=== PATIENT | male | born 1965 | race Caucasian/White ===

== ENCOUNTER → 2024-04-14 07:34 | Outpatient (REF) | payer OTHER, SELFPAY | LOC: RCS 07:34 | PROVIDERS: ATTENDING PHYSICIAN Family Medicine | DX: R01.1 Cardiac murmur, unspecified (principal) | CPT/HCPCS: 93306 ==

== ENCOUNTER 2024-05-22 18:24 | Emergency (ER) | payer OTHER, SELFPAY ==
[2024-05-22 18:42] LABS: % Basophils 0.4 % (0-2); % Immature Granulocytes 0.3 % (0-0.5); % Monocytes 8.1 % (1.7-9.3); % Neutrophils 68.2 % (42.2-75.2); Absolute Eosinophils 0.3 10^3/uL (0-0.7); Absolute Monocytes 0.8 10^3/uL (0.1-0.6); Absolute Neutrophils 6.9 10^3/uL (1.4-6.5); Hematocrit 45.1 % (39.0-52.0); Hemoglobin 15.8 g/dL (13.0-18.0); Mean Corpuscular Volume 85.7 fL (80.0-94.0); Mean Platelet Volume 9.3 fL (7.4-10.4); Nucleated Red Blood Cells % 0 % (-); Platelet Count 305 10^3/uL (130-400); Red Blood Cell Count 5.26 10^6/uL (4.70-6.10); Red Cell Dist. Width 13.1 % (11.5-14.5); White Blood Cell Count 10.1 10^3/uL (4.8-10.8)
[2024-05-22 19:07] LABS: ALT (SGPT) 27 U/L (0-50); AST (SGOT) 27 U/L (17-59); Albumin 4.6 g/dl (3.5-5.0); Alkaline Phosphatase 68 U/L (38-126); Blood Urea Nitrogen 20 mg/dl (9-20); Calcium 9.6 mg/dl (8.4-10.2); Carbon Dioxide 25 mmol/L (22-30); Chloride 100 mmol/L (98-107); Glucose 103 mg/dl (70-99); Potassium 4.1 mmol/L (3.5-5.1); Sodium 139 mmol/L (135-145); Total Bilirubin 0.7 mg/dl (0.2-1.3); Total Protein 7.1 g/dl (6.3-8.2); eGFR > 60.00
[2024-05-22 19:17] LABS: Troponin I < 0.012 ng/ml
--- NOTE | 2024-05-22 21:20 | ED.GENMED ---
History of Present Illness
General
Chief Complaint: Heart Rate Problem
Source: patient
Exam Limitations: none
Time Seen by Provider: 05/22/24 20:15
Nursing documentation reviewed up to this point in time: agreed with
History of Present Illness
History of Present Illness:
58-year-old male presents with palpitations and 'fluttering' that he is felt for the past 2 months, it gets worse when he eats. He saw his PCP for this and had an echocardiogram on which showed 'something wrong with one of the valves in my
heart.' He denies chest pain. He states he gets a 'pressure' feeling in the right upper chest and neck area that he is having during the initial exam. He denies N/V/D/C.
Past History
Past History
ED Past Medical History: Other (Calcified functionally bicuspid aortic valve)
ED Past Surgical History: Orthopedic
Social History
Tobacco: Non-smoker
Alcohol: None
Personal: Single
Living: with family
Employment: Employed
Review of Systems
Review of Systems
Allergies reviewed?: Yes
All Other Systems: ROS reviewed and negative except as documented in HPI and ROS
Constitutional: Denies fever or fatigue
Respiratory: Denies trouble breathing
Cardiac: Reports chest pain (Intermittent right upper chest pressure with pressure in the right side of his neck, worse after eating) and palpitations ('Fluttering' intermittently for the past 2 months); Denies diaphoresis
ABD/GI: Denies abdominal pain, nausea, vomiting, diarrhea or anorexia
: Reports no symptoms
Musculoskeletal: Reports no symptoms
Skin: Reports no symptoms
Neurological: Reports no symptoms
Phy Exam
Physical Exam
Physical Exam:
GENERAL: No acute distress. A&Ox3.
CONSTITUTIONAL: Afebrile.
EYES: Clear, conjunctivae normal
Neck: Supple
ENMT: moist mucus membranes, Pharynx nl
RESPIRATORY: Regular respirations, nonlabored, lungs clear.
CARDIOVASCULAR: Regular rate and rhythm, no murmurs, no rubs. Radial and pedal pulses 2/4
GI: Soft, nontender, normal BS
MUSCULOSKELETAL: Moves with ease. Well perfused.
SKIN: Warm, dry, pink
PSYCH: Normal mood and affect. Well kept, interactive and appropriate
NEUROLOGIC: Awake, alert and oriented. No focal neurological deficits
Course
Orders/Labs/Results
Orders:
Orders
05/22/24 18:24
Electrocardiogram (*1) Urgent
Reason for Study: Chest Pain
05/22/24 18:25
EKG- Treatment ONCE
05/22/24 18:37
Complete Blood Count/With Diff Urgent
Comprehensive Metabolic Panel Urgent
Troponin I Urgent
05/22/24 21:16
Pantoprazole [Protonix] 40 mg PO NOW STA
Abnormal Lab Results
05/22/24
18:37
Absolute Neuts (auto) 6.9 H 10^3/uL
(1.4-6.5)
Absolute Monos (auto) 0.8 H 10^3/uL
(0.1-0.6)
Lymphocytes % 20.0 L %
(20.5-51.1)
Glucose 103 H mg/dl
(70-99)
05/22/24 18:37
05/22/24 18:37
Vital Signs
Initial and Last Documented VS:
Initial Vital Signs
Temp Pulse Resp Pulse Ox
97.8 F 87 18 98
05/22/24 18:27 05/22/24 18:27 05/22/24 18:27 05/22/24 18:27
Last Documented Vital Signs
Temp Pulse Resp BP Pulse Ox
97.8 F 72 15 146/99 99
05/22/24 18:27 05/22/24 21:15 05/22/24 21:15 05/22/24 21:29 05/22/24 20:45
MDM/Problems Addressed
Differential Diagnosis Includes:
ACS, GERD
MDM/Problems Addressed:
58-year-old male presents with palpitations and 'fluttering' that he is felt for the past 2 months, it gets worse when he eats. He saw his PCP for this and had an echocardiogram on 928 which showed 'something wrong with one of the valves in my
heart.' He denies chest pain. He states he gets a 'pressure' feeling in the right upper chest and neck area that he is having during the initial exam. He denies N/V/D/C.
Afebrile, NAD
7:30 p.m.
CBC normal
CMP normal
Troponin normal
Records reviewed: Echocardiogram on 04/14 revealed a calcified functionally bicuspid aortic valve. Aortic sclerosis without stenosis. Otherwise normal
His echo also showed a normal aorta. No aortic stenosis. No aortic aneurysm or dissection.
9:00 p.m.
I gave patient a copy of the report, discussed what a functionally bicuspid aortic valve is, showed him pictures to him and his sister who is at bedside.
He stated he had no clue what it was and was very appreciative of the information.
His peripheral pulses are all normal. No suspicion of aortic pathology.
As he was experiencing the 'pressure' in right upper chest and neck, monitor showed NSR, occasional PVC, HR 82, BP normal, reassured.
Referred to the Cardiac hotline.
Trial of Protonix in the meantime (he does say the feeling gets worse after eating). Rx sent to his pharmacy
*Critical Care Note
Total Time (30-74mins, 75-104mins- exclusive of procedures): Not Applicable
ED Attending Note
-
Portions of this chart may have been created with voice recognition software.� Occasional wrong word or��sound alike� substitutions may have occurred due to the inherent limitations of voice recognition software.
Discharge Plan
Departure
Patient Disposition: Home (Routine Discharge)
Date of Disposition: 05/22/24
Time of Disposition: 21:26
Patient with high blood pressure during this ER visit?: No
Condition: Good
Discharge Problem:
Atypical chest pain
Instructions: Acid reflux and GERD in adults, Chest Pain DCA Follow Up
Prescriptions:
New
pantoprazole [Protonix] 40 mg tablet,delayed release (DR/EC)
40 mg PO DAILY Qty: 14 0RF
Referrals:
CHYNA Garcia [Other] - Follow up in 5-7 days
Sarai Brown MD [Family Provider] -
Activity Restrictions/Additional Instructions:
As we discussed, I sent a prescription to your pharmacy for Protonix. Take it daily to see if it helps.
Someone from the Cardiology group will be calling you to set up an appointment.
Let them know if the Protonix helped.
Return here immediately for worsening pain, pain associated with breaking out in a sweat, nausea or vomiting, lightheadedness, Shortness of breath or feeling sicker in any way
Interventions
Interventions:
*Risk Screen - Suicide Last Done: 05/22/24 18:31
*General Assessment Last Done: 05/22/24 18:31
*Neglect/Abuse Screening Last Done: 05/22/24 18:31
ED- Fall Risk Assessment Last Done: 05/22/24 21:43
*Nursing Disposition Last Done: 05/22/24 21:43
ED- Cardiac Assessment Last Done: 05/22/24 20:20
ED- Pulmonary Assessment Last Done: 05/22/24 20:20
Discharge Date and Time
Discharge Date/Time: 05/22/24 21:44
Print Language: [id number]
[2024-05-22] MEDS: PROTONIX 40 MG PO (21:28)
[2024-05-22 21:29] VITALS: BP 146/99
== END 2024-05-22 21:44 | disposition home or self-care (01) ==
LOC: EMR 18:24
PROVIDERS: Student in an Organized Health Care Education/Training Program; EMERGENCY PHYSICIAN Emergency Medicine; FAMILY PHYSICIAN Family Medicine
DX: R07.89 Other chest pain (principal)
CPT/HCPCS: 99284; 80053; 84484; 85025; 93005